=== PATIENT | female | born 1960 | race African-American/Black ===

== ENCOUNTER 2025-03-02 13:06 | Outpatient (AMB) | payer MEDICARE, SELFPAY ==
--- NOTE | 2025-03-02 13:17 | A.OFFPC_ITS ---
Vital Signs 03/02/25 13:22 Height 5 ft 8 in Weight 188 lb BMI 28.6 BP 120/84 Blood Pressure Location Lt brachial Position Sitting Respiration 16 Pulse 61 Pulse Source Pulse Oximeter Temp 97.9 F Temp Source Oral Pulse Oximetry (%) 96 Oxygen Delivery Method Room Air Intake Visit Reasons: physical Reel Hooker Required: No Accompanied by: Mother Allergies acetaminophen (From Percocet) Allergy (Intermediate, Verified 03/02/25 13:18) hives/dizziness/hallucinations meperidine (From Demerol) Allergy (Intermediate, Verified 03/02/25 13:18) hives/dizziness/hallucinations oxycodone (From Percocet) Allergy (Intermediate, Verified 03/02/25 13:18) hives/dizziness/hallucinations Penicillins Allergy (Intermediate, Verified 03/02/25 13:18) hives/dizziness [id number]-[id number]-[id number] Reductase Inhibitor Allergy (Intermediate, Verified 03/02/25 13:18) hives/dizziness Medication List - Last Reconciled 03/02/25 by Katie Sweeney MD blood-glucose sensor (Dexcom G6 Sensor device) As directed blood-glucose transmitter (Dexcom G6 Transmitter device) As directed cholecalciferol (vitamin D3) 25 mcg PO DAILY ezetimibe 10 mg PO DAILY hydrochlorothiazide 12.5 mg PO DAILY losartan 25 mg PO DAILY meclizine 12.5 mg PO TID PRN multivitamin 1 tab PO DAILY sitagliptin phosphate (Januvia) 100 mg PO DAILY tirzepatide (Mounjaro) 15 mg subcut QWEEK vitamin B complex 1 tab PO DAILY Tobacco use date assessed: 03/02/25 Dental Screening Dental Screen Date: 03/02/25 Did you have a dental visit in the last 12 months?: Yes Did you have a dental problem in the last 6 months where you did not have access to dental care?: No Was dental information given to patient?: Patient has dentist HPI HPI Comments History of Present Illness Details The patient is a 64-year-old female presenting with annual physical examination. Type 2 Diabetes Mellitus: Managed with Januvia and Mounjaro, fasting glucose 120-130s, occasional spikes. Essential Hypertension: Managed with Losartan, Hydrochlorothiazide. Episode of rebound hypertension with ER visit at [facility] resolved with medication regimen resumption. Hypercholesterolemia: Managed with Zetia, considering PCSK9 inhibitors pending insurance. Established with cardiology Anxiety: Stress-related symptoms, includes feeling overwhelmed and chest discomfort during agitation. Vertigo: Occurred concurrently with blood pressure issues, prescribed Meclizine but not used. Symptoms have now resolved. Diagnostic Results: - Labs: Fasting glucose levels typically 120s-130s via DEXcom. Health Maintenance colonoscopy 2021 pt will schedule mammogram [facility] [employer] [facility] at [facility] Care Team Dr. Rosario- [facility] cardiology for lipid management [facility] Urogynecology-Dr. Samantha Harrington Review of Systems - General: Denies shortness of breath du ring exertion. - Cardiovascular: reports chest discomf ort during stress. - Musculoskeletal: Denies swelling in le gs. - Neurological: Denies current vertigo, reports past lightheadedness. Physical Exam - Gen: NAD - Pulmonary- Normal respiratory effort. - Cardiovascular- Normal heart sounds, t iny, soft murmur across precordium - Abdomen- Soft, non-tender,non distend ed, normal bowel sounds. - Extremities- No swelling in legs. - Diabetic monofilament exam: normal in both extremities, 2+ dp pulses bilateral - Neuro: AOX3 Assessment and Plan 1. Type 2 Diabetes Mellitus - Continue Mounjaro and Januvia. Monitor glucose levels. 2. Essential Hypertension - Adhere to Losartan and Hydrochlorothia zide. Monitor blood pressure. 3. Hypercholesterolemia - Continue Zetia. Consider PCSK9 inhibit ors. 4. Anxiety - Continue self-care. Stress management, referral to therapy 5. Vertigo - No current Meclizine use. Monitor for symptoms. 6. Chest discomfort - most likely stress induced but due to risk factors including, HTN, diabetes and hyperlipidemia will order nuclear stress test Follow up in 4 months Discussion Notes I discussed the management of type 2 diabetes, including the continuation of medications such as Mounjaro and Januvia to maintain glucose stability. For hypertension, I advised strict adherence to Losartan and Hydrochlorothiazide to avoid potential rebound hypertension episodes. For hypercholesterolemia, we explored the option of PCSK9 inhibitors due to previous high readings, contingent upon insurance approval. I emphasized the importance of stress ma nagement to address anxiety-related symptoms and discussed potential referrals for stress management. We addressed vertigo history and current status, with no current need for treatment Patient Instructions - Continue all existing medications for diabetes, hypertension, and cholesterol. - Keep monitoring blood sugar levels and maintain adherence to medication. - Focus on stress management and taking personal time for self-care. - Schedule your mammogram and specialist follow-ups. - Report any recurrent or new symptoms s uch as dizziness or significant chest discomfort. [facility] Medical History (Updated 03/02/25 @ 16:41 by Katie Sweeney MD) Diabetes mellitus type 2 in obese Hot flashes Hypertension Hyperlipidemia Surgical History (Updated 03/02/25 @ 13:24 by Katie Sweeney MD) Encounter for colonoscopy due to history of colon cancer H/O: hysterectomy History of section Family History (Updated 03/01/25 @ 16:40 by Katie Sweeney MD) Mother Hypertension Stroke Father ESRD (end stage renal disease) Social History Housing: House Patient Tobacco Use Status: Never used Tobacco e-Cigarette/Vaping Use: Never Used Current occupational status: employed Current occupation: [employer] Questionnaire PHQ-9 Over the last 2 weeks, how often have you been bothered by any of the following problems? 1. Little interest or pleasure in doing things: not at all 2. Feeling down, depressed, or hopeless: several days 3. Trouble falling or staying asleep, or sleeping too much: not at all 4. Feeling tired or having little energy: several days 5. Poor appetite or overeating: not at all 6. Feeling bad about yourself - or that you are a failure or have let yourself or your family down: not at all 7. Trouble concentrating on things, such as reading the newspaper or watching television: not at all 8. Moving or speaking so slowly that other people could have noticed. Or the opposite - being so fidgety or restless that you have been moving around a lot more than usual: not at all 9. Thoughts that you would be better off or of hurting yourself in some way: not at all Total score: 2 Source: Developed by Drs. Sy Farmer, Sana Kc, Andrés Renee and colleagues, with an educational gui from [employer]. AUDIT C Alcohol Use Questionnaire (AUDIT-C) 1. How often do you have a drink containing alcohol?: Never 3. How often do you have six or more drinks on one occasion?: Never Total Score: 0 Physical exam (Primary Care) Vital Signs: Last Vital Signs Temp 97.9 F 03/02/25 13:22 Pulse 61 03/02/25 13:22 Resp 16 03/02/25 13:22 BP 120/84 03/02/25 13:22 Pulse Ox 96 03/02/25 13:22 Oxygen Delivery Method Room Air 03/02/25 13:22 BMI result Body Mass Index 28.6 Tobacco/Smoking Status: Tobacco use Status Tobacco use date assessed 03/02/25 03/02/25 13:24 Patient Tobacco Use Status Never used Tobacco 03/02/25 13:24 e-Cigarette/Vaping Use Never Used 03/02/25 13:24 PHQ-9: PHQ-9 Score PHQ-9: Total score 2 03/02/25 15:32 Coding Level of Care Code Est Pt Prev Care 40-64y(32334) Diagnoses Primary hypertension I10 Hypertension type: primary hypertension Hyperlipidemia, unspecified hyperlipidemia type E78.5 Hyperlipidemia type: unspecified Diabetes mellitus type 2 in obese E11.69; E66.9 Routine adult health maintenance Z00.00 Assessment & Plan Assessment & Plan (1) Hypertension: Code(s): I10 - Essential (primary) hypertension Category: Medical Qualifiers: Hypertension type: primary hypertension Qualified Code(s): I10 - Essential (primary) hypertension (2) Hyperlipidemia: Code(s): E78.5 - Hyperlipidemia, unspecified Category: Medical Qualifiers: Hyperlipidemia type: unspecified Qualified Code(s): E78.5 - Hyperlipidemia, unspecified (3) Diabetes mellitus type 2 in obese: Code(s): E11.69 - Type 2 diabetes mellitus with other specified complication; E66.9 - Obesity, unspecified Category: Medical (4) Routine adult health maintenance: Code(s): Z00.00 - Encounter for general adult medical examination without abnormal findings Category: Medical Plan - Continue Losartan, Hydrochlorothiazide, Mounjaro, Zetia. - Monitor glucose with DEXcom. - Adhere to hypertension meds. - Consider PCSK9 inhibitors. - Encourage self-care, stress management. - Schedule mammogram Orders: Orders Lipid Panel Today E78.5 - Hyperlipidemia, unspecified, I10 - Essential (primary) hypertension MM screening mammo BI Today Z12.31 - Encounter for screening mammogram for malignant neoplasm of breast Comprehensive Met. Panel Today E78.5 - Hyperlipidemia, unspecified, I10 - Essential (primary) hypertension Hemoglobin A1c Today E78.5 - Hyperlipidemia, unspecified, I10 - Essential (primary) hypertension Complete Blood Count Auto Diff Today E78.5 - Hyperlipidemia, unspecified, I10 - Essential (primary) hypertension Microalbumin, Random (w Creat) Today E78.5 - Hyperlipidemia, unspecified, I10 - Essential (primary) hypertension NM cardiolite stress test Today R07.9 - Chest pain, unspecified Medications: New hydrochlorothiazide 12.5 mg PO DAILY 90 tabs 3RF tirzepatide (Mounjaro) 15 mg (0.5 mL) subcut QWEEK 6.5 mL 3RF 3 months losartan 25 mg PO DAILY 90 tabs 3RF Patient Instructions: Get fasting labs Schedule mammogram We will also refer you to a therapist
[2025-03-02 13:22] VITALS: BP 120/84; PULSE 61; RESP 16; TEMP 36.6; O2SAT 96; BMI 28.6
--- OUTSIDE RECORDS SUMMARY | 2025-03-02 15:07 | XMS_ITS | Clinical Summary ---
Author Organization [facility] Address [address] [place] [address] Care Team Providers Care Senior Net Engineer Name Role Phone Katie Sweeney MD Primary Care Provider [phone] Allergies Active Allergy Reactions Criticality Noted Date Comments Penicillins 09/18/2021 Statins 09/18/2021 Medications Medication Sig Dispensed Refills Start Date End Date Status Continuous Blood Gluc Sensor (Dexcom G6 Sensor) MISC USE 4-5 TIMES DAILY 0 08/31/2021 Activ e Continuous Blood Gluc Transmit (Dexcom G6 Transmitter) MISC DX: E11.9 DIABETES MELLITUS TYPE 2 LIFETIME USE 0 08/22/2021 Active Trulicity 3 MG/0.5ML subcutaneous pen-injector INJECT 0.5ML SUBCUTAMEOUSLY EVERY WEEK 0 08/27/2021 Active ezetimibe (ZETIA) tablet 10 mg Take 10 mg by mouth daily. 0 08/27/2021 Active glipiZIDE (GLUCOTROL XL) ER 24 hr tablet 5 mg TAKE 1 TABLET BY MOUTH EVERY DAY NEEDED FOR ELEVATED FASTING SUGARS 0 08/27/2021 Active hydroCHLOROthiazid e (HYDRODIURIL) tablet 25 mg Take 25 mg by mouth daily. 0 06/24/2021 Active losartan (COZAAR) tablet 25 mg 0 09/07/2021 Active oxybutynin (DITROPAN-XL) 10 MG 24 hr tablet Take 10 mg by mouth daily. 0 07/24/2021 Active Januvia 100 MG tablet Take 100 mg by mouth daily. 0 08/26/2021 Active meloxicam (MOBIC) 15 MG tablet TAKE 1 TABLET (15 MG TOTAL) BY MOUTH DAILY. 30 tablet 0 10/15/2021 Active Family History Medical History Relation Name Comments Clotting disorder Mother Diabetes Mother Hypertension Mother Clotting disorder Sister Relation Name Status Comments Mother Sister Social History Tobacco Use Types Packs/Day Years Used Date Smoking Tobacco: Former Smokeless Tobacco: Never Alcohol Use Standard Drinks/Week Comments Not Currently 0 (1 standard drink = 0.6 oz pur e alcohol) Sex and Gender Information Value Date Recorded Sex Assigned at Not on file Gender Identity Not on file Sexual Orientation Not on file Job Start Date Occupation Industry Not on file Not on file Not on file Last Filed Vital Signs Vital Sign Reading Time Taken Comments Blood Pressure - - Pulse - - Temperature - - Respiratory Rate - - Oxygen Saturation - - Inhaled Oxygen Concentration - - Weight 88 kg (194 lb) 09/18/2021 1:47 PM EDT Height 175.3 cm (5' 9 ) 09/18/2021 1:47 PM EDT Body Mass Index 28.65 09/18/2021 1:47 PM EDT Plan of Treatment Health Maintenance Due Date Last Done Comments Hepatitis C Screening 1961 COVID-19 Vaccine (#1) 01/23/1962 Depression Screening 1973 BMI Counseling 07/24/1979 Preventative Health Evaluation 07/24/1979 DTap / Tdap / Td (1 - Tdap) 1980 Cervical Cancer Screening (P ap Smear) 1982 Colon Cancer Screening (Colonoscopy) 2006 Breast Cancer Screening (Mammogram) 07/24/2011 Shingrix-Zoster Vaccine (1 of 2) 07/24/2011 Influenza Vaccine (#1) 2025 RSV Adult > 60+ Yrs or Pregn ant (1 - 1-dose 75+ series) 2036 Hepatitis B Vaccines Aged Out No long er eligible based on patient's age to complete this topic Pneumococcal Vaccine Aged Out No long er eligible based on patient's age to complete this topic RSV Ped < 20 months Aged Out No longe r eligible based on patient's age to complete this topic Care Teams Senior Net Engineer Relationship Specialty Start Date End Date Katie Sweeney MD [address] [place] [id number] PCP - General Internal Medicine 09/18/21
--- OUTSIDE RECORDS SUMMARY | 2025-03-02 15:07 | XMS_ITS | Data Portability ---
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 She does have some mild degenerative changes in her left knee but not severe at the time. We discussed aggravating alleviating factors. We agreed to a trial of physical therapy for her quadriceps tendinitis. We discussed additional options in the future for her arthritis. If symptoms do not improve, corticosteroid injection could be considered. She will follow-up in 4 to 6 weeks to assess progress of therapy, sooner for any complications. Patient was seen and evaluated by Alan Mills PA-C in indirect conjunction with Dr. Roberts. The provider agrees with the history, physical examination, recommended tests/diagnostic imaging, and treatment plan. [email or web address] Not available 08/28/2024 14:22:58 10/16/2024 10/16/2024 She feels she is making progress with physical therapy. Working diagnosis quadriceps and patellar tendinitis. She has no symptoms at all with walking. We decided on continuation of therapy once or twice a week for another few weeks. Provided she maintains her current trajectory of improvement we can just leave follow-up open-ended. If she plateaus or symptoms regress I be happy to see her back. Long-term may need consideration of an injection, possibly further workup with an MRI. She is comfortable with the plan as outlined. Greater than 20 minutes was spent with the encounter today, including face to face time with the patient, documentation, review of records/imaging if applicable, and coordination of care. PRIOR JUSTIN: Patient symptoms are consistent with quadriceps tendinitis. She does have some mild degenerative changes in her left knee but not severe at the time. We discussed aggravating alleviating factors. We agreed to a trial of physical therapy for her quadriceps tendinitis. We discussed additional options in the future for her arthritis. If symptoms do not improve, corticosteroid injection could be considered. She will follow-up in 4 to 6 weeks to assess progress of therapy, sooner for any complications. Not available 10/16/2024 16:29:21 Plan of Treatment Reminders Order Date Submit Date Provider Last Modified By Organization Details Last Modified Time Details Appointments None recorded. Lab None recorded. Referral physical therapist referral - Frequency: 2 visits per week for 6 weeks Therapy: Evaluate and Treat Modalities: As needed Precautions - if any: Goals: ROM, HEP, Decrease Pain, Increase Strength, stability and Endurance. 2024 025 MARY Not available 08:25:05 Procedures None recorded. Surgeries None recorded. Imaging XR, knee, 4 or more view 2024 025 [email or web address] [facility], [address], [place], [address], 16:56:22 Medication Orders None recorded. Patient TargetsNo targets recorded. Patient Instructions Encounter Date Encounter Id Patient Instructions Last Modified By Organization Details Last Modified Time 08/28/2024 [id number] Radiographs: 4 views of the Left knee(s) were obtained in the [place] office on 08/28/2024 including AP, Alvarez, lateral (weightbearing), and sunrise. X-rays demonstrated normal bony mineralization. Joint spaces mildly decreased medial and patellafemoral . No evidence of acute injury or fracture. Findings: Osteoarthritis Left Knee. X-ray interpretation by: [email or web address] [email or web address] Not available 08/28/2024 16:59:18 10/16/2024 [id number] Radiographs: 4 views of the Left knee(s) were obtained in the [place] office on 08/28/2024 including AP, Alvarez, lateral (weightbearing), and sunrise. X-rays demonstrated normal bony mineralization. Joint spaces mildly decreased medial and patellafemoral . No evidence of acute injury or fracture. Findings: Osteoarthritis Left Knee. X-ray interpretation by: Alan Mills PA-C Not available 10/16/2024 06:51:29 Reason for Referral Physical Therapist Referral for Osteoarthritis of left knee joint Frequency: 2 visits per week for 6 weeksTherapy: Evaluate and TreatModalities:As neededPrecautions - if any:Goals: ROM, HEP, Decrease Pain, Increase Strength, stability and Endurance. Referring Physician: Alan Mills, Orthopedic Surgery, Encounter Date: 08/28/2024 Problems Name Problem SNOMED Code Status Onset Date Resolution Date Notes Provider Name and Address Organization Details Recorded Time Tendinitis of left quadriceps tendon 5799656322666 9100 Active 2024 ALAN MILLS PA-C [address], [place], [address], [place] [facility] 5 14:21:20 Osteoarthri tis of left knee joint 9392958686449 09 Active 2024 ALAN MILLS PA-C [address], [place], [address], [place] [facility] 5 14:21:37 Pain of left knee region 0624694920396 09 Active 2024 Denis Roberts MD [address], [place], [address], [place] [facility] 5 06:51:28 Problem Notes None recorded. Medical Equipment None Reported. Allergies Allergen ID Allergen Name Allergen Category Reaction Reaction Severity Criticality Documentation Date Start Date Code Code System Note Provider Name and Address Organization Details Recorded Time 12192 Product containin g penicilli n (product) medicatio n Not available Not available Not available 08/28/2024 32045 8001 SNOMED Sana Hunter null, [place] [facility] 15:41:20 24458 Product containin g 3-hydroxy -3-methyl glutaryl- coenzyme A reductase inhibitor (product) medicatio n Not available Not available Not available 08/28/2024 37395 009 SNOMED Sana Hunter null, [place] [facility] 5 15:41:26 Medications Name Sig Start Date Stop Date Status Note LastModified by Organization Details LastModified Time oxybutynin chloride ER 10 mg tablet,exte nded release 24 hr Take 10 mg by mouth daily. 2021 active Not Available Not Available Not Avai lable meloxicam 15 mg tablet TAKE 1 TABLET (15 MG TOTAL) BY MOUTH DAILY. 2021 active Not Available Not Available Not Avai lable glipizide ER 5 mg tablet, extended release 24 hr TAKE 1 TABLET BY MOUTH EVERY DAY NEEDED FOR ELEVATED FASTING SUGARS 2021 active Not Available Not Available Not Avai lable losartan 25 mg tablet TAKE 1 TABLET BY MOUTH EVERY DAY active Not Available Not Available No t Available hydrochloro thiazide 25 mg tablet Take 25 mg by mouth daily. 2021 active Not Available Not Available Not Avai lable gabapentin 100 mg capsule TAKE 1 TO 3 CAPSULES BY MOUTH AT BEDTIME 10/16 completed Not Available Not Available Not Available ezetimibe 10 mg tablet TAKE 1 TABLET BY MOUTH EVERY DAY active Not Available Not Available No t Available Januvia 100 mg tablet TAKE 1 TABLET BY MOUTH EVERY DAY active Not Available Not Available No t Available hydrochloro thiazide 12.5 mg tablet TAKE 1 TABLET BY MOUTH EVERY DAY active Not Available Not Available No t Available Trulicity INJECT 0.5ML SUBCUTAME OUSLY EVERY WEEK 2021 active Not Available Not Available Not Avai lable Dexcom G6 Sensor device CHECK BLOOD GLUCOSE 4-5 TIMES DAILY active Not Available Not Available No t Available Dexcom G6 Die Grinder USE DIRECTED active Not Available Not Available No t Available Dexcom G6 Transmitter device DX: E11.9 DIABETES MELLITUS TYPE 2 LIFETIME USE active Not Available Not Available No t Available Mounjaro 15 mg/0.5 mL subcutaneou s pen injector 15 MG SUBCUTANE OUS INJECTION EVERY WEEK,ROTA TE INJECTION SITES active Not Available Not Available No t Available Mounjaro 10 mg/0.5 mL subcutaneou s pen injector 10 MG SUBCUTANE OUS INJECTION EVERY WEEK,INST R:ROTATE INJECTION SITES 10/16 completed Not Available Not Available Not Available Mounjaro 12.5 mg/0.5 mL subcutaneou s pen injector 12.5 MG SUBCUTANE OUS INJECTION EVERY WEEK,INST R:ROTATE INJECTION SITES 10/16 completed Not Available Not Available Not Available Vitals Date Recorded Body height Body mass index (BMI) Body weight Provider Name and Address Organization Details Last Updated DateTime 08/28/2024 170.18 cm 28.5 kg/m2 [address]9821.[address] [place] [facility] 08/28/2024 15:42:03 Date Recorded Body height Body mass index (BMI) Body weight Provider Name and Address Organization Details Last Updated DateTime 10/16/2024 170.18 cm 28.3 kg/m2 [address]9538.[address] [place] [facility] 10/16/2024 16:15:48 Social History None recorded. Functional Status Question Answer Note LastModified by Organizat ion Details LastModified Time Do you use any illicit or recreational drugs? No [email or web address] Information not available 08/28/2024 Do you or have you ever used any other forms of tobacco or nicotine? No [email or web address] Information not available 08/28/2024 What is your level of alcohol consumption? None [email or web address] Information not available 08/28/2024 Mental Status None recorded. Family History Relationship Description Onset Age of this Age Resolved Age Notes LastModified by Organization Details LastModified Time Sister Arthritis [email or web address] Not avail able 08/28/2024 15:42:37 Mother Diabetes mellitus [email or web address] Not available 08/09 15:42:43 Medical History Condition Response Diabetes Y Hypertension Y Gynecological HistoryNo gynecological history recorded. Obstetrics History GPAL:G 0 P 0 0 0 0 Past Encounters Encounter ID Performer Location Encounter Start Date Encounter Closed Date Diagnosis/Indication Diagnosis SNOMED-CT Code Diagnosis ICD10 Code Diagnosis IMO Codes Diagnosis Note [id number] ALAN MILLS PA-C [address] [address] 08/28/2024 13:35:00 08/28/2024 14:23:21 Pain of left knee region 7907480996 81184 M25.562 [id number] Tendinitis of left quadriceps tendon 0111594933 1508325 M76.892 [id number] Osteoarthr itis of left knee joint 3738258396 09645 M17.12 [id number] Denis Roberts MD [facility] [address] [place] [address] 10/16/2024 15:46:50 10/16/2024 16:27:32 Tendinitis of left quadriceps tendon 7573978743 4260443 M76.892 1894019020 Osteoarthr itis of left knee joint 3337649783 07728 M17.12 [id number] Health Concerns Section Related Observation LastModified by Organization Detai ls LastModified Time None Recorded Concern Status LastModified by Organization Details LastModified Time None Recorded Advance Directives Directive None Recorded Payers Insurance Date Sequence Insurance Name Policy Number Policy Alexander Covered Member ID Alexander Member ID Guarantor Name 10/13/2024 1 [place] [id number] Tawanda Boyle [id number] Alyssia Boyle Notes Date Note Type Note Provider Name and Address Organization Details Recorded Time 08/28/2024 text/html ROS as noted in the HPI Patient is a 64-year-old female who presents today with pain in her left knee. Symptoms started in February. At the time of the onset, she was being treated in physical therapy for sciatica. After she started her treatments, she is now developing pain in her knee. Fortunately the other symptoms improved. She is having most difficulty when she is going up and down stairs. Pain started primarily above her kneecap. She has difficulty squatting and kneeling. No bowel or bladder complaints. No weakness. No joint swelling. She was previously seen for her knee by Dr. Roman. ALAN MILLS PA-C [address], [place], [address], [place] [facility] 08/28/2024 17:01:11 10/16/2024 text/html ROS as noted in the HPI Patient returns for reevaluation of her anterior left knee pain. She feels that physical therapy so far is helping, she has had about 5 sessions so far. They tried taping without any real benefit. She has no trouble walking at all, her only issue really is going up and down stairs. She tends to be careful on stairs and holds the railing. She denies any swelling. She denies radiating pain to the hip or ankle. PRIOR JUSTIN:Patient is a 64-year-old female who presents today with pain in her left knee. Symptoms started in February. At the time of the onset, she was being treated in physical therapy for sciatica. After she started her treatments, she is now developing pain in her knee. Fortunately the other symptoms improved. She is having most difficulty when she is going up and down stairs. Pain started primarily above her kneecap. She has difficulty squatting and kneeling. No bowel or bladder complaints. No weakness. No joint swelling. She was previously seen for her knee by Dr. Roman. Denis Roberts MD [address], [place], [address], [place] [facility] 10/16/2024 16:48:14 OBGyn Episode No OBEpisode recorded.
== END 2025-03-02 14:51 | disposition home or self-care (01) ==
LOC: HO.HMCHD 13:06
PROVIDERS: PCP Internal Medicine; Visit Provider Internal Medicine
DX: Z00.00 Encounter for general adult medical examination without abnormal findings (principal); I10 Essential (primary) hypertension; E78.5 Hyperlipidemia, unspecified; E11.69 Type 2 diabetes mellitus with other specified complication; E66.9 Obesity, unspecified

== ENCOUNTER → 2025-03-02 13:06 | Outpatient (BNVA) | payer MEDICARE, SELFPAY | PROVIDERS: PCP Internal Medicine; Visit Provider Internal Medicine | DX: Z00.00 Encounter for general adult medical examination without abnormal findings (principal); I10 Essential (primary) hypertension; E78.5 Hyperlipidemia, unspecified; E11.69 Type 2 diabetes mellitus with other specified complication; E66.9 Obesity, unspecified; Z68.28 Body mass index [BMI] 28.0-28.9, adult; F41.9 Anxiety disorder, unspecified; R42 Dizziness and giddiness; Z79.899 Other long term (current) drug therapy; Z13.30 Encounter for screening examination for mental health and behavioral disorders, unspecified | CPT/HCPCS: 96127; 99396 ==

== ENCOUNTER → 2025-04-30 09:55 | Outpatient (REF) | payer BC, SELFPAY ==
--- NOTE | ~2025-04-30 | NM_ITS ---
EXERCISE MYOCARDIAL PERFUSION STUDY INDICATION: Chest pain with multiple risk factors to evaluate for myocardial ischemia TECHNIQUE: The patient was brought in for an exercise perfusion study on 04/30/2025. Patient performed exercise as per Akhil protocol and was injected 30 mCi of sestamibi once target heart rate was achieved. Images were obtained using the SPECT gamma camera interlaced with the gating device. Images were obtained in supine position. Resting perfusion study was performed on 05/01/2025. Patient was administered 30 mCi of sestamibi intravenously at rest. Images were then obtained in supine position. Images were processed with the software and compared side to side in short axis, horizontal long axis and vertical long axis views. Images obtained without without CT attenuation. Total DLP 91 mGy-cm. FINDINGS: Raw images were reviewed The stress perfusion study showed both attenuated as well as nonattenuated corrected images show normal uptake of radiotracer in all segments of the LV myocardium. The gated study shows normal LV systolic function with calculated LVEF of 70%. LV cavity is normal in size. The gated study shows normal systolic wall thickening and contraction of segments. Resting study shows no change in perfusion pattern compared to stress perfusion study. Gating at rest reveals normal systolic wall motion with ejection fraction at 76%. The findings are consistent with normal myocardial perfusion. NM/NM cardiolite stress test IMPRESSION: 1. Myocardial perfusion imaging study shows normal myocardial perfusion. 2. Gated LVEF is 70%. 3. Transient ischemic dilatation not present. EKG revealed negative for ischemia. Electronically signed by: Judd Sabillon MD 05/01/2025 05:02 PM [facility]
--- NOTE | 2025-04-30 09:59 | CA_ITS ---
Acquisition Time: 2025-04-30 10:18:33 Total Exercise Time: 00:08:15 Test Indications: CP Medications: SEE H&P Protocol: HOLLY Max HR: 136 BPM 86% of Pred: 157 BPM Max BP: 138/84 mmHG Max Work Load: 10.1 METS Exercise stress test with exercise 8 mins 15 secs of Holly Protocol, achieving 85% MPHR, without any reports of SOB or CP, with isolated PVCs, with normotensive response to exercise. Without any EKG changes meeting criteria for sichemia. In recovery, pt feeling back to baseline. Nuclear images pending. Test reviewed with Dr. Sabillon. Referred By: Katie Sweeney Electronically Signed By: Rigoberto Moscoso
--- OUTSIDE RECORDS SUMMARY | 2025-04-30 11:45 | XMS_ITS | Clinical Summary ---
Author Organization [facility] Prior to 10/07/24 Address [address] [place] [address] Care Team Providers Care Infrastructure Security Architect Name Role Phone Katie Sweeney MD Primary Care Provider [phone] Allergies Active Allergy Reactions Criticality Noted Date [...] age to complete this topic Care Teams Infrastructure Security Architect Relationship Specialty Start Date End Date Katie Sweeney MD [address] [place] [address] PCP - General Internal Medicine 09/18/21
--- OUTSIDE RECORDS SUMMARY | 2025-04-30 11:45 | XMS_ITS ---
Author Name [facility] Organization Unknown History of Medication Use Medication Directions Dispensed Refills Start Date End Date Stat [employer] G6 Transmitter device DX: E11.9 DIABETES MELLITUS TYPE 2 LIFETIME USE active ezetimibe 10 mg tablet TAKE 1 TABLET BY MOUTH EVERY DAY active gabapentin 100 mg capsule TAKE 1 TO 3 CAPSULES BY MOUTH AT BEDTIME active hydrochlorothiazide 12.5 mg tablet TAKE 1 TABLET BY MOUTH EVERY DAY active Januvia 100 mg tablet TAKE 1 TABLET BY MOUTH EVERY DAY active losartan 25 mg tablet TAKE 1 TABLET BY MOUTH EVERY DAY active Mounjaro 10 mg/0.5 mL subcutaneous pen injector 10 MG SUBCUTANEOUS INJECTION EVERY WEEK,INSTR:ROTATE INJECTION SITES active Mounjaro 12.5 mg/0.5 mL subcutaneous pen injector 12.5 MG SUBCUTANEOUS INJECTION EVERY WEEK,INSTR:ROTATE INJECTION SITES active Mounjaro 15 mg/0.5 mL subcutaneous pen injector 15 MG SUBCUTANEOUS INJECTION EVERY WEEK,ROTATE INJECTION SITES active Allergies Allergen Reaction Severity Comment Documented Date Source Statu s PENICILLINS [facility] [id number] REDUCTASE INHIBITORS [facility] Problems Problem Status Onset Date Problem Type Date of Resoluti on Source Pain of left knee region active 2024-10-16 ProblemAct [facility] Osteoarthritis of left knee joint active 2024-08-28 ProblemAct [facility] Tendinitis of left quadriceps tendon active 2024-08-28 ProblemAct [facility] Encounters Encounter Type Encounter Reason Primary Diagnosis Location Date Ambulatory [facility] 10/16/2024 Ambulatory [facility] 10/16/2024 Ambulatory [facility] 08/29/2024 Ambulatory [facility] 08/28/2024 Ambulatory [facility] 08/28/2024 Ambulatory [facility] 08/28/2024 Ambulatory [facility] 08/28/2024 Ambulatory [facility] 07/15/2022 Care Team Organization Name Specialty Phone Email Start Date End Da te [employer] [facility] 04/21 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
== END ==
LOC: HO.CARD 09:55
PROVIDERS: PCP Internal Medicine; Visit Provider Internal Medicine
DX: R07.9 Chest pain, unspecified (principal); E11.9 Type 2 diabetes mellitus without complications; I10 Essential (primary) hypertension
CPT/HCPCS: 78452; 93017; A9500

== ENCOUNTER → 2025-04-30 09:59 | Outpatient (BNV) | payer BC, SELFPAY | PROVIDERS: PCP Internal Medicine | DX: R07.9 Chest pain, unspecified (principal) | CPT/HCPCS: 78452; 93016; 93018 ==